=== PATIENT | male | born 2005 | race Caucasian/White ===

== ENCOUNTER 2025-09-08 19:52 | Emergency (ER) | payer BC ==
[2025-09-08 20:14] LABS: BASOPHILS ABSOLUTE AUTO 0.1 x10-3/uL (0.0-0.3); BASOPHILS PERCENT AUTO 0.8 % (0.3-3.8); EOSINOPHILS ABSOLUTE AUTO 0.3 x10-3/uL (0.0-0.6); EOSINOPHILS PERCENT AUTO 4.0 % (0.1-6.8); LYMPHOCYTES ABSOLUTE AUTO 2.5 x10-3/uL (0.5-4.5); LYMPHOCYTES PERCENT AUTO 35.2 % (15.8-45.3); MEAN PLATELET VOLUME 6.5 fL (6.7-11.0); MONOCYTES ABSOLUTE AUTO 0.6 x10-3/uL (0.0-1.2); MONOCYTES PERCENT AUTO 9.0 % (5.5-15.2); NEUTROPHILS ABSOLUTE AUTO 3.7 x10-3/uL (1.7-6.9); NEUTROPHILS PERCENT AUTO 51.0 % (40.3-71.8); PLATELET COUNT,PLT 294 x10(3)uL (117-477); RED BLOOD CELL COUNT 4.89 x10(6)uL (3.90-5.90); RED CELL DISTRIBUTION WIDTH 12.8 % (12.4-15.0); WHITE BLOOD CELL COUNT,WBC 7.2 x10-3/uL (3.2-10.1)
[2025-09-08 20:17] LABS: BLOOD UREA NITROGEN,BUN 16 mg/dL (7-18); CARBON DIOXIDE,CO2 30 mmol/L (21-32); CHLORIDE,CL 102 mmol/L (100-110); CREATININE 1.0 mg/dL (0.70-1.30); ESTIMATED GFR 111 mL/min (>60); GLUCOSE RANDOM 104 mg/dL (80-116); POTASSIUM,K 4.2 mmol/L (3.5-5.3); SODIUM,NA 140 mmol/L (135-145)
== END 2025-09-08 21:01 | disposition home or self-care (01) ==
LOC: FB.ED 19:52
DX: I49.8 Other specified cardiac arrhythmias (principal); Z79.899 Other long term (current) drug therapy
CPT/HCPCS: 36415; 80048; 84443; 84484; 85025; 93005; 99285